=== PATIENT | male | born 1965 | race Two or more races ===

== ENCOUNTER 2024-04-04 09:44 | Inpatient (IN) | payer OTHER ==
[2024-04-04 10:33] VITALS: BMI 20.2
[2024-04-04] MEDS ORDERED: chlordiazePOXIDE HCL 25 MG CAPSULE PO PRN (10:50)
[2024-04-04] MEDS ORDERED: P-EPHED 60MG/TRIPROLIDI 2.5MG TABLET PO PRN (10:51)
[2024-04-04] MEDS ORDERED: BENZONATATE 200 MG CAPSULE PO PRN (10:51)
[2024-04-04] MEDS ORDERED: LOPERAMIDE HCL 2 MG CAPSULE PO PRN (10:51)
[2024-04-04] MEDS ORDERED: DICYCLOMINE HCL 10 MG CAPSULE PO PRN (10:51)
[2024-04-04] MEDS ORDERED: ONDANSETRON *ODT* 4 MG TABLET SL PRN (10:51)
[2024-04-04] MEDS ORDERED: NICOTINE POLACRILEX 2 MG GUM BUC PRN (10:51)
[2024-04-04] MEDS ORDERED: NICOTINE POLACRILEX 2 MG LOZENGE BC PRN (10:51)
[2024-04-04] MEDS ORDERED: MAG HYDROX/AL HYDROX/SIMETH 30 ML UNIT-DOSE CUP PO PRN (10:51)
[2024-04-04] MEDS ORDERED: ACETAMINOPHEN 325 MG TABLET (FP) PO PRN (10:51)
[2024-04-04] MEDS ORDERED: NALOXONE (NARCAN) HCL 4 MG/0.1 ML SPRAY NS PRN (10:51)
[2024-04-04] MEDS ORDERED: BENZOCAINE/MENTHOL (CHLORASEPTIC ) LOZENGE MM PRN (10:51)
[2024-04-04] MEDS ORDERED: POLYETHYLENE GLYCOL (HEALTHYLAX) 3350 17 GM PACKET PO PRN (10:51)
[2024-04-04] MEDS ORDERED: MAGNESIUM HYDROX 2400MG/30ML ORAL SUSPENSION 30 ML CUP PO PRN (10:51)
[2024-04-04] MEDS ORDERED: IBUPROFEN 600 MG TABLET (FP) PO PRN (10:51)
[2024-04-04] MEDS ORDERED: BISMUTH SUBSALICYLATE 524 MG/30 ML PO PRN (10:51)
[2024-04-04] MEDS ORDERED: hydrOXYzine PAMOATE 25 MG CAPSULE (FP) PO PRN (10:51)
[2024-04-04] MEDS ORDERED: METHOCARBAMOL 500 MG TABLET PO PRN (10:51)
[2024-04-04] MEDS ORDERED: IBUPROFEN 400 MG TABLET (FP) PO PRN (10:51)
[2024-04-04] MEDS ORDERED: guaiFENesin 600 MG TABLET.ER (FP) PO PRN (10:51)
[2024-04-04] MEDS ORDERED: chlordiazePOXIDE HCL 25 MG CAPSULE ONE (11:49)
[2024-04-04] MEDS: chlordiazePOXIDE HCL 25 MG CAPSULE PO SCH (11:50)
[2024-04-04] MEDS: levETIRAcetam 500 MG TABLET (FP) PO SCH (13:50)
[2024-04-04] MEDS: THIAMINE 100 MG TABLET PO SCH (22:06)
[2024-04-04] MEDS: MELATONIN 5 MG TABLETS PO SCH (22:06)
[2024-04-05] MEDS: PRENATAL VITAMINS W/ FOLIC ACID TABLET (FP) PO SCH (10:14)
[2024-04-05 11:11] LABS: HEMATOCRIT 35.4 % (35.4-49); HEMOGLOBIN 11.7 GM/dL (11.7-16.9); MCH 30.6 pg (25.7-33.7); MCHC 33.2 g/dl (32.0-35.9); MEAN CELL VOLUME 92.4 fl (80-96); MEAN PLT VOLUME 9.1 fl (7.5-11.1); PLATELET COUNT 179 10^3/uL (134-434); RBC 3.83 M/mm3 (4.00-5.60); RDW 17.4 % (11.9-15.9); WHITE BLOOD COUNT 4.1 K/mm3 (4.0-10.0)
[2024-04-05 11:42] LABS: ALBUMIN 2.8 g/dl (3.4-5.0); CALCIUM 8.4 mg/dL (8.5-10.1)
[2024-04-05 11:43] LABS: BLOOD UREA NITROGEN 18.7 mg/dL (7-18)
[2024-04-05 11:47] LABS: CREATININE 0.7 mg/dL (0.55-1.3)
[2024-04-05 11:48] LABS: BILIRUBIN,TOTAL 0.9 mg/dL (0.2-1); TOT PROT 5.8 g/dl (6.4-8.2)
[2024-04-06] MEDS: chlordiazePOXIDE HCL 25 MG CAPSULE PO SCH (05:32)
[2024-04-07] MEDS ORDERED: chlordiazePOXIDE HCL 10 MG CAPSULE PO PRN
[2024-04-07] MEDS: chlordiazePOXIDE HCL 10 MG CAPSULE PO SCH (05:17)
[2024-04-08] MEDS: chlordiazePOXIDE HCL 10 MG CAPSULE PO SCH (05:27)
[2024-04-08 20:26] VITALS: RESP 16
[2024-04-09] MEDS: chlordiazePOXIDE HCL 10 MG CAPSULE PO ONE (05:38)
[2024-04-09 06:16] VITALS: BP 107/73; PULSE 90; TEMP 98.2
[2024-04-09] MEDS: NALOXONE (NYS OPIOID OVERDOSE PROGRAM) 4 MG/0.1 ML SPRAY NS SCH (08:55)
== END 2024-04-09 09:49 | disposition other institution (70) | DRG 774 ==
LOC: YASAS 09:44 → Y3N 11:27
PROVIDERS: ADMIT Allergy & Immunology; ATTEND Allergy & Immunology
PROC: HZ2ZZZZ Detoxification Services for Substance Abuse Treatment (ICD-10-PCS; principal; 2024-04-04)
DX: F10.230 Alcohol dependence with withdrawal, uncomplicated (principal); F14.20 Cocaine dependence, uncomplicated; F12.20 Cannabis dependence, uncomplicated; F17.210 Nicotine dependence, cigarettes, uncomplicated; F41.9 Anxiety disorder, unspecified; G40.909 Epilepsy, unspecified, not intractable, without status epilepticus; Z56.0 Unemployment, unspecified; Z59.00 Homelessness unspecified
CPT/HCPCS: 36415; 80053; 80305; 80307; 85027; 86780; 93005; 93010